=== PATIENT | female | born 1945 | race Caucasian/White ===

== ENCOUNTER 2017-06-13 18:38 | Inpatient (IN) | payer OTHER ==
[~2017-06-13] VITALS: Ht 162.6 cm; Wt 77.7 kg
[2017-06-13] MEDS ORDERED: SODIUM CHLORIDE FLUSH 10ML SYR IVF ONE (19:00)
[2017-06-13] MEDS ORDERED: HEPARIN 5,000 UNITS/ML, 1ML IV ONE (19:30)
[2017-06-13 19:34] LABS: ASPARTATE AMINO TRANSFERASE 158 U/L (15-37); BLOOD UREA NITROGEN 9 mg/dL (7-18)
[2017-06-13 19:35] LABS: HEMATOCRIT 31.2 % (34.6-47.8); HEMOGLOBIN 10.1 g/dL (11.7-16.4); WHITE BLOOD COUNT 22.5 x10^3/uL (3.4-10)
[2017-06-13 19:38] LABS: IS PT STATUS REG ER OR PRE ER? YES
[2017-06-13 19:58] LABS: DIFF TOTAL CELLS COUNTED 100 CELL DIFF
[2017-06-13] MEDS ORDERED: HEPARIN 5,000 UNITS/ML, 1ML ONE ×2 (19:58→19:59)
[2017-06-13 20:00] LABS: ANISOCYTOSIS 2+; HYPOCHROMIA 1+
[2017-06-13] MEDS ORDERED: HEPARIN 25,000 UNITS/500ML PMX 500 ML ONE (20:00)
[2017-06-13 20:01] LABS: MICROCYTOSIS 2+; POLYCHROMASIA 1+
[2017-06-13 20:02] LABS: TARGET CELLS 1+
[2017-06-13 20:04] LABS: VERIFY COUNTS? YES
[2017-06-13] MEDS: HEPARIN 25,000 UNITS/500ML PMX 500 ML IV PRN (20:12)
[2017-06-13] MEDS ORDERED: LISI1TAB3 PO (20:32)
[2017-06-13] MEDS ORDERED: SODIUM CHLORIDE FLUSH 10ML SYR IVF PRN (21:00)
[2017-06-13] MEDS ORDERED: POTASSIUM CHLORIDE 20 MEQ TAB.ER.PRT PO ONE (22:00)
[2017-06-13] MEDS ORDERED: POLYETHYLENE GLYCOL 17 GM PACKET PO PRN (22:00)
[2017-06-13] MEDS ORDERED: BISACODYL 10 MG SUPP PR PRN (22:00)
[2017-06-13] MEDS ORDERED: ACETAMINOPHEN 325 MG TABLET PO PRN (22:00)
[2017-06-13 23:04] LABS: FERRITIN 471.8 ng/mL (8-252)
[2017-06-14 00:16] VITALS: BP 106/66
[2017-06-14] MEDS: CEFTRIAXONE PMX 1GM/50ML 50 ML IV SCH ×2 (00:16→23:24)
[2017-06-14] MEDS: SODIUM CHLORIDE FLUSH 10ML SYR IVF SCH ×3 (00:16→23:24)
[2017-06-14] MEDS ORDERED: ALPR-475 PO (00:22)
[2017-06-14 02:57] LABS: HEMATOCRIT 27.6 % (34.6-47.8); WHITE BLOOD COUNT 20.2 x10^3/uL (3.4-10)
[2017-06-14 03:02] LABS: BLOOD UREA NITROGEN 8 mg/dL (7-18)
[2017-06-14 03:06] LABS: ASPARTATE AMINO TRANSFERASE 143 U/L (15-37)
[2017-06-14 03:28] LABS: DIFF TOTAL CELLS COUNTED 100 CELL DIFF
[2017-06-14 03:30] LABS: VERIFY COUNTS? YES
[2017-06-14 03:31] LABS: ANISOCYTOSIS 2+; HYPOCHROMIA 1+; MICROCYTOSIS 2+; POLYCHROMASIA 1+; TARGET CELLS 1+
[2017-06-14] MEDS: HEPARIN 5,000 UNITS/ML, 1ML IV PRN ×3 (04:42→19:00)
[2017-06-14 07:17] VITALS: BP 106/69
[2017-06-14] MEDS: SENNA/DOCUSATE TABLET PO SCH (08:56)
[2017-06-14] MEDS: HYDROCHLOROTHIAZIDE 12.5 MG CAPSULE PO SCH (09:00)
[2017-06-14] MEDS: LISINOPRIL 10 MG TABLET PO SCH (09:00)
[2017-06-14 15:03] VITALS: BP 116/71
[2017-06-14] MEDS: POTASSIUM CHLORIDE 20 MEQ TAB.ER.PRT PO SCH (18:03)
[2017-06-14] MEDS: ONDANSETRON 2MG/ML, 2ML IVPush PRN (19:50)
[2017-06-14 20:00] VITALS: BP 106/63
[2017-06-14] MEDS: HEPARIN 25,000 UNITS/500ML PMX 500 ML IV PRN (23:33)
[2017-06-15] VITALS (7 sets, daily range): BP systolic 102–138; BP diastolic 60–85
[2017-06-15] MEDS: HEPARIN 5,000 UNITS/ML, 1ML IV PRN ×2 (03:24→20:41)
[2017-06-15 05:03] LABS: HEMOGLOBIN 8.9 g/dL (11.7-16.4); WHITE BLOOD COUNT 21.1 x10^3/uL (3.4-10)
[2017-06-15 05:05] LABS: BLOOD UREA NITROGEN 7 mg/dL (7-18)
[2017-06-15 05:08] LABS: ASPARTATE AMINO TRANSFERASE 153 U/L (15-37)
[2017-06-15 05:42] LABS: DIFF TOTAL CELLS COUNTED 100 CELL DIFF
[2017-06-15 05:43] LABS: ANISOCYTOSIS 2+; MICROCYTOSIS 2+; VERIFY COUNTS? YES
[2017-06-15 05:44] LABS: HYPOCHROMIA 1+; POLYCHROMASIA 1+; TARGET CELLS 1+
[2017-06-15] MEDS: HYDROCHLOROTHIAZIDE 12.5 MG CAPSULE PO SCH (09:00)
[2017-06-15] MEDS: POTASSIUM CHLORIDE 20 MEQ TAB.ER.PRT PO SCH (09:26)
[2017-06-15] MEDS: LISINOPRIL 10 MG TABLET PO SCH (09:26)
[2017-06-15] MEDS: SENNA/DOCUSATE TABLET PO SCH (09:27)
[2017-06-15] MEDS: SODIUM CHLORIDE FLUSH 10ML SYR IVF SCH ×2 (09:27→20:44)
[2017-06-15] MEDS: ONDANSETRON 2MG/ML, 2ML IVPush PRN (13:47)
[2017-06-15] MEDS: HEPARIN 25,000 UNITS/500ML PMX 500 ML IV PRN (20:44)
[2017-06-15] MEDS: CEFTRIAXONE PMX 1GM/50ML 50 ML IV SCH (23:16)
[2017-06-16 04:18] VITALS: BP 109/71
[2017-06-16 05:30] LABS: HEMATOCRIT 26.8 % (34.6-47.8); HEMOGLOBIN 8.8 g/dL (11.7-16.4); WHITE BLOOD COUNT 22.5 x10^3/uL (3.4-10)
[2017-06-16 05:45] LABS: ASPARTATE AMINO TRANSFERASE 240 U/L (15-37); BLOOD UREA NITROGEN 7 mg/dL (7-18)
[2017-06-16 05:46] LABS: DIFF TOTAL CELLS COUNTED 100 CELL DIFF
[2017-06-16 05:48] LABS: ANISOCYTOSIS 2+; HYPOCHROMIA 1+; MICROCYTOSIS 2+; POLYCHROMASIA 1+; TARGET CELLS 1+; VERIFY COUNTS? YES
[2017-06-16 09:50] VITALS: BP 114/72
[2017-06-16] MEDS: SENNA/DOCUSATE TABLET PO SCH (10:20)
[2017-06-16] MEDS: PHYTONADIONE 10 MG/ML, 1ML SQ SCH (10:20)
[2017-06-16] MEDS: LISINOPRIL 10 MG TABLET PO SCH (10:20)
[2017-06-16] MEDS: SODIUM CHLORIDE 0.9% 1,000 ML IV SCH ×2 (10:21→19:43)
[2017-06-16] MEDS: SODIUM CHLORIDE FLUSH 10ML SYR IVF SCH ×2 (10:21→19:44)
[2017-06-16 12:55] VITALS: BP 119/78
[2017-06-16] MEDS ORDERED: MIDAZOLAM 1 MG/ML, 5ML ONE (13:35)
[2017-06-16] MEDS ORDERED: FENTANYL PF 100 MCG/2ML ONE (13:35)
[2017-06-16 19:06] VITALS: BP 104/69
[2017-06-16] MEDS: HEPARIN 25,000 UNITS/500ML PMX 500 ML IV PRN (19:34)
[2017-06-16] MEDS: HEPARIN 5,000 UNITS/ML, 1ML IV PRN (21:51)
[2017-06-16] MEDS: CEFTRIAXONE PMX 1GM/50ML 50 ML IV SCH (22:53)
[2017-06-17 01:01] VITALS: BP 103/65
[2017-06-17] MEDS: SODIUM CHLORIDE 0.9% 1,000 ML IV SCH ×2 (06:00→20:32)
[2017-06-17 06:20] LABS: HEMATOCRIT 29.6 % (34.6-47.8); HEMOGLOBIN 9.6 g/dL (11.7-16.4); WHITE BLOOD COUNT 23.5 x10^3/uL (3.4-10)
[2017-06-17 06:24] LABS: ASPARTATE AMINO TRANSFERASE 432 U/L (15-37); BLOOD UREA NITROGEN 7 mg/dL (7-18)
[2017-06-17 06:50] VITALS: BP 109/71
[2017-06-17 07:58] LABS: DIFF TOTAL CELLS COUNTED 100 CELL DIFF
[2017-06-17 08:01] LABS: VERIFY COUNTS? YES
[2017-06-17 08:02] LABS: ANISOCYTOSIS 2+
[2017-06-17 08:03] LABS: HYPOCHROMIA 1+; POIKILOCYTOSIS 1+; POLYCHROMASIA 1+; TARGET CELLS 1+
[2017-06-17 08:06] LABS: MICROCYTOSIS 1+
[2017-06-17] MEDS: SENNA/DOCUSATE TABLET PO SCH (09:00)
[2017-06-17] MEDS: SODIUM CHLORIDE FLUSH 10ML SYR IVF SCH ×2 (09:00→20:53)
[2017-06-17] MEDS: LISINOPRIL 10 MG TABLET PO SCH ×2 (09:00→22:57)
[2017-06-17] MEDS ORDERED: PROPOFOL 10 MG/ML, 20ML ONE (11:04)
[2017-06-17] MEDS ORDERED: METOPROLOL 1 MG/ML, 5ML ONE (11:04)
[2017-06-17] MEDS ORDERED: DEXAMETHASONE 4 MG/ML, 1ML ONE (11:04)
[2017-06-17] MEDS ORDERED: SUCCINYLCHOLINE 20 MG/ML, 10ML ONE (11:04)
[2017-06-17] MEDS ORDERED: ONDANSETRON 2MG/ML, 2ML ONE (11:04)
[2017-06-17] MEDS ORDERED: FENTANYL PF 100 MCG/2ML ONE ×2 (11:04→11:42)
[2017-06-17] MEDS ORDERED: OXYcodone 5 MG/5 ML ORAL.SOL UDC PO PRN (12:00)
[2017-06-17] MEDS ORDERED: ALBUTEROL SULFATE 2.5 MG/3 ML NPPB PRN (12:00)
[2017-06-17] MEDS ORDERED: ACETAMINOPHEN 325 MG TABLET PO PRN (12:00)
[2017-06-17] MEDS ORDERED: ONDANSETRON 2MG/ML, 2ML IVPush PRN (12:00)
[2017-06-17] MEDS ORDERED: HYDROmorphone 1 MG/ML, 1ML IV PRN (12:00)
[2017-06-17] MEDS ORDERED: FENTANYL PF 100 MCG/2ML IV PRN (12:00)
[2017-06-17] MEDS ORDERED: hydrALAzine 20 MG/ML, 1ML IV PRN (12:00)
[2017-06-17] MEDS ORDERED: LABETALOL 5MG/ML, 20ML IV PRN (12:00)
[2017-06-17] MEDS ORDERED: METOPROLOL 1 MG/ML, 5ML IV PRN (12:00)
[2017-06-17] MEDS ORDERED: GADOBUTROL 10 MMOL/10 ML VIAL ONE (13:06)
[2017-06-17] MEDS ORDERED: OXYcodone 5 MG/5 ML ORAL.SOL UDC ONE (13:10)
[2017-06-17] MEDS ORDERED: HEPARIN 5,000 UNITS/ML, 1ML IV ONE (16:00)
[2017-06-17] MEDS: HEPARIN 25,000 UNITS/500ML PMX 500 ML IV PRN (16:03)
[2017-06-17] MEDS: PHYTONADIONE 10 MG/ML, 1ML SQ SCH (16:13)
[2017-06-17 19:04] VITALS: BP 130/64
[2017-06-17] MEDS: HEPARIN 5,000 UNITS/ML, 1ML IV PRN (22:52)
[2017-06-17] MEDS: CEFTRIAXONE PMX 1GM/50ML 50 ML IV SCH (23:04)
[2017-06-18 00:56] VITALS: BP 112/68
[2017-06-18] MEDS: HEPARIN 25,000 UNITS/500ML PMX 500 ML IV PRN (02:25)
[2017-06-18] MEDS: SODIUM CHLORIDE 0.9% 1,000 ML IV SCH ×2 (05:25→16:43)
[2017-06-18 06:42] VITALS: BP 115/69
[2017-06-18 07:28] LABS: HEMATOCRIT 28.5 % (34.6-47.8); HEMOGLOBIN 9.1 g/dL (11.7-16.4)
[2017-06-18 07:32] VITALS: BP 112/71
[2017-06-18 07:34] LABS: ASPARTATE AMINO TRANSFERASE 565 U/L (15-37); BLOOD UREA NITROGEN 7 mg/dL (7-18)
[2017-06-18 07:56] LABS: DIFF TOTAL CELLS COUNTED 100 CELL DIFF
[2017-06-18 07:58] LABS: VERIFY COUNTS? YES
[2017-06-18 07:59] LABS: ANISOCYTOSIS 2+; HYPOCHROMIA 1+; MICROCYTOSIS 1+; OVALOCYTES 1+; POLYCHROMASIA 1+
[2017-06-18 08:01] LABS: TARGET CELLS 2+
[2017-06-18] MEDS: LISINOPRIL 10 MG TABLET PO SCH (08:05)
[2017-06-18] MEDS: SODIUM CHLORIDE FLUSH 10ML SYR IVF SCH ×2 (08:06→21:56)
[2017-06-18] MEDS: SENNA/DOCUSATE TABLET PO SCH ×2 (08:06→16:46)
[2017-06-18] MEDS: PHYTONADIONE 10 MG/ML, 1ML SQ SCH (09:20)
[2017-06-18] MEDS ORDERED: ROCURONIUM 10 MG/ML,10ML ONE (09:55)
[2017-06-18] MEDS ORDERED: PROPOFOL 10 MG/ML, 20ML ONE ×2 (09:55→09:58)
[2017-06-18] MEDS ORDERED: DEXAMETHASONE 4 MG/ML, 1ML ONE (09:58)
[2017-06-18] MEDS ORDERED: GLYCOPYRROLATE 0.2MG/1ML, 5ML ONE (09:58)
[2017-06-18] MEDS ORDERED: FENTANYL PF 100 MCG/2ML ONE ×3 (09:58→10:33)
[2017-06-18] MEDS ORDERED: NEOSTIGMINE 1 MG/ML, 10ML ONE ×2 (09:58→09:59)
[2017-06-18] MEDS ORDERED: ROCURONIUM 10MG/ML,5ML ONE (09:58)
[2017-06-18] MEDS ORDERED: ONDANSETRON 2MG/ML, 2ML ONE ×2 (09:58)
[2017-06-18] MEDS ORDERED: GLYCOPYRROLATE 0.4 MG/2 ML, 2ML ONE (09:59)
[2017-06-18] MEDS ORDERED: ONDANSETRON 2MG/ML, 2ML IVPush PRN (10:30)
[2017-06-18] MEDS ORDERED: OXYcodone 5 MG/5 ML ORAL.SOL UDC PO PRN (10:30)
[2017-06-18] MEDS ORDERED: FENTANYL PF 100 MCG/2ML IV PRN (10:30)
[2017-06-18] MEDS ORDERED: LABETALOL 5MG/ML, 20ML IV PRN (10:30)
[2017-06-18] MEDS ORDERED: HYDROmorphone 1 MG/ML, 1ML IV PRN (10:30)
[2017-06-18] MEDS ORDERED: hydrALAzine 20 MG/ML, 1ML IV PRN (10:30)
[2017-06-18] MEDS ORDERED: METOPROLOL 1 MG/ML, 5ML IV PRN (10:30)
[2017-06-18] MEDS ORDERED: EPHEDRINE 50 MG/ML, 1ML IVPush PRN (10:30)
[2017-06-18] MEDS ORDERED: ALBUTEROL SULFATE 2.5 MG/3 ML NPPB PRN (10:30)
[2017-06-18] MEDS ORDERED: INDOMETHACIN 50 MG SUPP.RECT ONE (11:15)
[2017-06-18] MEDS ORDERED: INDOMETHACIN 50 MG SUPP.RECT PR ONE (11:30)
[2017-06-18 13:40] VITALS: BP 113/57
[2017-06-18] MEDS ORDERED: HEPARIN 5,000 UNITS/ML, 1ML IV ONE (15:00)
[2017-06-18 18:42] VITALS: BP 119/74
[2017-06-18] MEDS: HEPARIN 5,000 UNITS/ML, 1ML IV PRN (21:56)
[2017-06-18] MEDS: CEFTRIAXONE PMX 1GM/50ML 50 ML IV SCH (23:13)
[2017-06-19 01:38] VITALS: BP 106/58
[2017-06-19] MEDS: SODIUM CHLORIDE 0.9% 1,000 ML IV SCH ×2 (02:09→11:42)
[2017-06-19 04:39] LABS: ASPARTATE AMINO TRANSFERASE 619 U/L (15-37); BLOOD UREA NITROGEN 14 mg/dL (7-18)
[2017-06-19 04:43] LABS: HEMATOCRIT 31.7 % (34.6-47.8); HEMOGLOBIN 10.2 g/dL (11.7-16.4); WHITE BLOOD COUNT 37.7 x10^3/uL (3.4-10)
[2017-06-19 05:58] LABS: DIFF TOTAL CELLS COUNTED 100 CELL DIFF
[2017-06-19 05:59] LABS: ANISOCYTOSIS 2+; HYPOCHROMIA 1+; MICROCYTOSIS 1+; OVALOCYTES 1+; POLYCHROMASIA 1+; VERIFY COUNTS? YES
[2017-06-19 06:00] LABS: TARGET CELLS 1+
[2017-06-19 07:11] VITALS: BP 110/76
[2017-06-19] MEDS: SENNA/DOCUSATE TABLET PO SCH ×2 (08:03→17:23)
[2017-06-19] MEDS: LISINOPRIL 10 MG TABLET PO SCH (08:03)
[2017-06-19] MEDS: SODIUM CHLORIDE FLUSH 10ML SYR IVF SCH ×2 (08:05→20:46)
[2017-06-19] MEDS: ONDANSETRON 2MG/ML, 2ML IVPush PRN ×2 (08:06→14:26)
[2017-06-19] MEDS ORDERED: LIDOCAINE 1%, 20ML ONE (10:38)
[2017-06-19] MEDS ORDERED: CEFAZOLIN PMX 1GM/50ML 50 ML ONE (10:56)
[2017-06-19] MEDS ORDERED: FENTANYL PF 100 MCG/2ML ONE (10:56)
[2017-06-19] MEDS ORDERED: MIDAZOLAM 1 MG/ML, 5ML ONE (10:56)
[2017-06-19 12:15] VITALS: BP 112/60
[2017-06-19 13:52] VITALS: BP 105/78
[2017-06-19] MEDS ORDERED: PROCHLORPERAZINE 5 MG/ML, 2ML IV ONE (16:00)
[2017-06-19] MEDS ORDERED: PROCHLORPERAZINE 5 MG TABLET PO PRN (16:00)
[2017-06-19] MEDS ORDERED: HEPARIN 5,000 UNITS/ML, 1ML IV ONE (17:00)
[2017-06-19 19:44] VITALS: BP 96/63
[2017-06-19] MEDS: CEFTRIAXONE PMX 1GM/50ML 50 ML IV SCH (22:52)
[2017-06-19] MEDS: HEPARIN 5,000 UNITS/ML, 1ML IV PRN (23:19)
[2017-06-20 01:51] VITALS: BP 109/70
[2017-06-20] MEDS: SODIUM CHLORIDE 0.9% 1,000 ML IV SCH ×3 (01:52→22:56)
[2017-06-20 05:48] LABS: HEMATOCRIT 28.5 % (34.6-47.8); HEMOGLOBIN 9.3 g/dL (11.7-16.4); WHITE BLOOD COUNT 37.5 x10^3/uL (3.4-10)
[2017-06-20 05:55] LABS: BLOOD UREA NITROGEN 28 mg/dL (7-18)
[2017-06-20 06:06] LABS: ASPARTATE AMINO TRANSFERASE 873 U/L (15-37)
[2017-06-20] MEDS: HEPARIN 5,000 UNITS/ML, 1ML IV PRN ×2 (06:40→13:38)
[2017-06-20] MEDS: HEPARIN 25,000 UNITS/500ML PMX 500 ML IV PRN (06:41)
[2017-06-20 06:45] VITALS: BP 100/60
[2017-06-20 06:50] LABS: DIFF TOTAL CELLS COUNTED 200 CELL DIFF
[2017-06-20 06:52] LABS: VERIFY COUNTS? YES
[2017-06-20 06:53] LABS: ANISOCYTOSIS 2+; MICROCYTOSIS 1+
[2017-06-20 06:54] LABS: HYPOCHROMIA 1+; TARGET CELLS 1+
[2017-06-20] MEDS: SODIUM CHLORIDE FLUSH 10ML SYR IVF SCH ×2 (08:44→19:52)
[2017-06-20] MEDS: LISINOPRIL 10 MG TABLET PO SCH (08:44)
[2017-06-20] MEDS: SENNA/DOCUSATE TABLET PO SCH (08:44)
[2017-06-20 13:59] VITALS: BP 97/53
[2017-06-20] MEDS: ONDANSETRON 2MG/ML, 2ML IVPush PRN (19:51)
[2017-06-20 20:30] VITALS: BP 97/62
[2017-06-20] MEDS: CEFTRIAXONE PMX 1GM/50ML 50 ML IV SCH (22:55)
[2017-06-21 02:15] LABS: HEMATOCRIT 26.4 % (34.6-47.8); HEMOGLOBIN 8.5 g/dL (11.7-16.4); WHITE BLOOD COUNT 35.3 x10^3/uL (3.4-10)
[2017-06-21 02:21] LABS: BLOOD UREA NITROGEN 44 mg/dL (7-18)
[2017-06-21 02:28] LABS: ASPARTATE AMINO TRANSFERASE 1539 U/L (15-37)
[2017-06-21 02:53] LABS: DIFF TOTAL CELLS COUNTED 100 CELL DIFF
[2017-06-21 02:56] LABS: VERIFY COUNTS? YES
[2017-06-21 02:58] LABS: ANISOCYTOSIS 2+
[2017-06-21 02:59] LABS: HYPOCHROMIA 1+; MICROCYTOSIS 1+; POLYCHROMASIA 1+; TARGET CELLS 2+
[2017-06-21 03:00] LABS: OVALOCYTES 1+
[2017-06-21] MEDS ORDERED: CALCIUM GLUCONATE 4.6 MEQ in SODIUM CHLORIDE 0.9% 50 ML IV ONE (03:00)
[2017-06-21 03:01] LABS: LARGE PLATELETS 1+
[2017-06-21] MEDS: HEPARIN 5,000 UNITS/ML, 1ML IV PRN ×3 (03:04→17:15)
[2017-06-21 04:09] VITALS: BP 110/68
[2017-06-21] MEDS: HEPARIN 25,000 UNITS/500ML PMX 500 ML IV PRN (06:42)
[2017-06-21 06:55] VITALS: BP 130/100
[2017-06-21] MEDS: LISINOPRIL 10 MG TABLET PO SCH (07:34)
[2017-06-21] MEDS: SENNA/DOCUSATE TABLET PO SCH (07:34)
[2017-06-21] MEDS: SODIUM CHLORIDE FLUSH 10ML SYR IVF SCH ×2 (07:34→20:34)
[2017-06-21 10:44] VITALS: BP 91/42
[2017-06-21 12:41] VITALS: BP 95/43
[2017-06-21] MEDS: SODIUM CHLORIDE 0.9% 1,000 ML IV SCH ×2 (15:22→23:37)
[2017-06-21 18:59] VITALS: BP 93/68
[2017-06-21] MEDS: CEFTRIAXONE PMX 1GM/50ML 50 ML IV SCH (23:37)
[2017-06-22 00:55] VITALS: BP 64/40
[2017-06-22 01:29] LABS: HEMATOCRIT 24.1 % (34.6-47.8); HEMOGLOBIN 7.7 g/dL (11.7-16.4)
[2017-06-22] MEDS ORDERED: SODIUM CHLORIDE 0.9% 1,000 ML IV SCH (01:30)
[2017-06-22 01:53] LABS: DIFF TOTAL CELLS COUNTED 100 CELL DIFF
[2017-06-22 01:58] LABS: ANISOCYTOSIS 2+; MICROCYTOSIS 1+; VERIFY COUNTS? YES
[2017-06-22 01:59] LABS: HYPOCHROMIA 1+; OVALOCYTES 1+; POLYCHROMASIA 1+; TARGET CELLS 2+
[2017-06-22 02:00] LABS: LARGE PLATELETS 1+
[2017-06-22 02:45] VITALS: BP 80/42
[2017-06-22 03:07] LABS: BLOOD UREA NITROGEN 57 mg/dL (7-18)
[2017-06-22 03:24] LABS: ASPARTATE AMINO TRANSFERASE 2794 U/L (15-37)
[2017-06-22] MEDS: HEPARIN 25,000 UNITS/500ML PMX 500 ML IV PRN (03:31)
[2017-06-22 03:55] VITALS: BP 72/38
[2017-06-22] MEDS ORDERED: HOLD MEDICATION MC PRN (04:30)
[2017-06-22] MEDS: SODIUM CHLORIDE 0.9% 1,000 ML IV SCH ×2 (05:00→09:34)
[2017-06-22 05:29] VITALS: BP 84/46
[2017-06-22] MEDS ORDERED: SODIUM CHLORIDE 0.9% 500 ML IV ONE (05:30)
[2017-06-22 05:56] LABS: OCCBLD OBC PASS
[2017-06-22] MEDS ORDERED: SODIUM CHLORIDE 0.9% 500 ML IV SCH (06:00)
[2017-06-22 06:17] LABS: HEMOGLOBIN 7.2 g/dL (11.7-16.4)
[2017-06-22 06:27] LABS: HEMATOCRIT 22.6 % (34.6-47.8)
[2017-06-22 07:55] VITALS: BP 57/35
[2017-06-22 08:14] VITALS: BP 49/25
[2017-06-22] MEDS ORDERED: PHYTONADIONE 10 MG in SODIUM CHLORIDE 0.9% 50 ML IV ONE (08:30)
[2017-06-22] MEDS ORDERED: PROTAMINE SULFATE 50 MG in SODIUM CHLORIDE 0.9% 50 ML IV ONE (08:30)
[2017-06-22] MEDS ORDERED: morphine SULFATE 125 MG in SODIUM CHLORIDE 0.9% 237.5 ML IV PRN (08:38)
[2017-06-22] MEDS ORDERED: LORazepam 2 MG/ML, 1ML IVPush PRN (09:00)
[2017-06-22] MEDS ORDERED: PROCHLORPERAZINE 5 MG/ML, 2ML IVPush PRN (09:00)
[2017-06-22] MEDS: LISINOPRIL 10 MG TABLET PO SCH (09:00)
[2017-06-22] MEDS: SODIUM CHLORIDE FLUSH 10ML SYR IVF SCH (09:00)
[2017-06-22] MEDS ORDERED: ATROPINE OPHTH SOLN 1%, 5ML BC PRN (09:00)
[2017-06-22] MEDS ORDERED: SCOPOLAMINE PATCH, 1.5MG PATCH.TD72 TD PRN (09:00)
[2017-06-22] MEDS: SENNA/DOCUSATE TABLET PO SCH (09:32)
== END 2017-06-22 15:53 | disposition expired | DRG 435 ==
LOC: ED 19:26 → EDIP 21:25 → 4WST 22:57 → 3NW 06-15 14:00
PROVIDERS: ADMIT Hospitalist; ATTEND Hospitalist
PROC: 30233N1 Transfusion of Nonautologous Red Blood Cells into Peripheral Vein, Percutaneous Approach (ICD-10-PCS; 2017-06-15)
PROC: 0F798DZ Dilation of Common Bile Duct with Intraluminal Device, Via Natural or Artificial Opening Endoscopic (ICD-10-PCS; 2017-06-18)
PROC: 0JH63XZ Insertion of Tunneled Vascular Access Device into Chest Subcutaneous Tissue and Fascia, Percutaneous Approach (ICD-10-PCS; 2017-06-19)
PROC: 02H633Z Insertion of Infusion Device into Right Atrium, Percutaneous Approach (ICD-10-PCS; 2017-06-19)
PROC: B2141ZZ Fluoroscopy of Right Heart using Low Osmolar Contrast (ICD-10-PCS; 2017-06-19)
PROC: B244ZZZ Ultrasonography of Right Heart (ICD-10-PCS; 2017-06-19)
PROC: 30233K1 Transfusion of Nonautologous Frozen Plasma into Peripheral Vein, Percutaneous Approach (ICD-10-PCS; principal; 2017-06-22)
DX: C78.7 Secondary malignant neoplasm of liver and intrahepatic bile duct (principal); I26.99 Other pulmonary embolism without acute cor pulmonale; E43 Unspecified severe protein-calorie malnutrition; N17.9 Acute kidney failure, unspecified; G93.40 Encephalopathy, unspecified; K83.1 Obstruction of bile duct; D68.69 Other thrombophilia; I11.9 Hypertensive heart disease without heart failure; E87.1 Hypo-osmolality and hyponatremia; D50.9 Iron deficiency anemia, unspecified; E87.6 Hypokalemia; D72.829 Elevated white blood cell count, unspecified; E83.51 Hypocalcemia; Z51.5 Encounter for palliative care; Z80.0 Family history of malignant neoplasm of digestive organs; Z80.3 Family history of malignant neoplasm of breast; Z80.42 Family history of malignant neoplasm of prostate; Z85.038 Personal history of other malignant neoplasm of large intestine; Z85.3 Personal history of malignant neoplasm of breast; Z87.891 Personal history of nicotine dependence; Z90.10 Acquired absence of unspecified breast and nipple; Z90.49 Acquired absence of other specified parts of digestive tract; Z90.710 Acquired absence of both cervix and uterus; Z90.722 Acquired absence of ovaries, bilateral; Z92.21 Personal history of antineoplastic chemotherapy; Z68.29 Body mass index [BMI] 29.0-29.9, adult; S20.02XA Contusion of left breast, initial encounter; Z66 Do not resuscitate; X58.XXXA Exposure to other specified factors, initial encounter; Y93.89 Activity, other specified; Y92.89 Other specified places as the place of occurrence of the external cause; Y99.8 Other external cause status
CPT/HCPCS: 36415; 36561; 70553; 71020; 74000; 74181; 74183; 74328; 76937; 77001; 80053; 81001; 82140; 82247; 82248; 82272; 82728; 82962; 83540; 83550; 83880; 84484; 85014; 85018; 85025; 85520; 85610; 85730; 86850; 86900; 86923; 87040; 87086; 87324; 93005; 93306; 93970; 96365; 96366; 99156; 99157; A9585; C1894; J0610; J0690; J0696; J1100; J1644; J2250; J2270; J2405; J2704; J2710; J3010; J3430; J3490; C1769; C1788; C1876; C2625; J0330; J0780; J1642; J7030; J7040; P9016; P9017

== ENCOUNTER → 2017-06-13 | Outpatient (CLI) | payer MEDICARE, OTHER ==
[~2017-06-13] MED LIST: ALPR-475 PO; LISI1TAB3 PO; OMNIPAQUE 350 MG/ML, 100ML BOTTLE ONE
== END | disposition home or self-care (01) ==
LOC: RAD 15:33
PROVIDERS: ATTEND Internal Medicine Hematology & Oncology
DX: C78.7 Secondary malignant neoplasm of liver and intrahepatic bile duct (principal); C18.9 Malignant neoplasm of colon, unspecified; I26.99 Other pulmonary embolism without acute cor pulmonale
CPT/HCPCS: 74160; Q9967